=== PATIENT | male | born 1990 | race Caucasian/White ===

== ENCOUNTER 2025-02-26 22:11 | Emergency (ER) | payer SELFPAY ==
[~2025-02-26] VITALS: Ht 175.3 cm; Wt 72.6 kg
[2025-02-26 23:00] VITALS: BP 150/99
[2025-02-26] MEDS ORDERED: POLY15DR31 LEFTEYE (23:53)
[2025-02-26] MEDS ORDERED: MINE3.5O LEFTEYE (23:53)
[2025-02-26] MEDS ORDERED: PRED20TA PO (23:53)
[2025-02-26] MEDS ORDERED: PREG75CA PO (23:53)
[2025-02-26] MEDS ORDERED: VALA100026 PO (23:53)
[2025-02-27 00:01] VITALS: BP 149/89; TEMP 98; O2SAT 96
== END 2025-02-27 | disposition home or self-care (01) ==
LOC: ER 22:11
DX: G51.0 Bell's palsy (principal); F17.210 Nicotine dependence, cigarettes, uncomplicated; Z79.52 Long term (current) use of systemic steroids; Z79.624 Long term (current) use of inhibitors of nucleotide synthesis
CPT/HCPCS: 93005; A4606; A4663; J7512